=== PATIENT | male | born 1945 | race Caucasian/White ===

== ENCOUNTER 2016-12-30 00:29 | Day surgery (SDC) | payer MEDICARE, OTHER ==
[~2016-12-30] VITALS: Ht 169.6 cm; Wt 76.9 kg
[2016-12-30] VITALS (14 sets, daily range): BP systolic 116–163; BP diastolic 56–82; PULSE 35–70; RESP 12–17; O2SAT 94–100
[~2016-12-30 00:29] MED LIST: ASPI325T32 PO; CHOL200047 PO; GLUC-207 PO; LEVO25TA5 PO; MULT1CAP33 PO; OMEG-38 PO; VITA200C61 PO; [UNRECOGNIZED DRUG - CODE] PO; [UNRECOGNIZED DRUG - OTHER]; [UNRECOGNIZED DRUG - OTHER]; [UNRECOGNIZED DRUG - OTHER] PO
--- NOTE | 2016-12-30 09:00 | NUR ---
ADMISSION NOTE MALE PT ADMITTED FOR HEART CATH. DISCUSSED PLAN OF CARE WITH PT AND FAMILY .SEE ADMIT AND FLOW SHEET
[2016-12-30 09:30] LABS: BASOPHILS % (AUTO) 0.4 % (0-3); EOSINOPHILS % (AUTO) 3.4 % (0-5); MONOCYTES % (AUTO) 9.4 % (4-12); Mean Corpuscular Volume 90.3 fL (81-100); Platelet Count 206 bil/L (150-400)
[2016-12-30] MEDS ORDERED: NITR0.4T6 SL (10:37)
[2016-12-30] MEDS ORDERED: [UNRECOGNIZED DRUG - OTHER] (10:39)
[2016-12-30] MEDS ORDERED: lipitor (10:39)
[2016-12-30] MEDS ORDERED: Heparin 10,000 Unit/1,000 mL NS Premix IV ONE (11:14)
[2016-12-30] MEDS ORDERED: Heparin 1,000 Units/500 mL NS Premix IV ONE (11:14)
[2016-12-30] MEDS ORDERED: fentaNYL-PF 50 mCg/mL 2 mL Inj ONE (11:43)
[2016-12-30] MEDS ORDERED: Nitroglycerin 50,000 mcg/250 mL D5W Premix IV ONE (11:55)
[2016-12-30] MEDS ORDERED: Heparin 1,000 Unit/mL 10 mL Inj ONE (12:02)
--- NOTE | 2016-12-30 12:45 | NUR ---
POST PROCEDURE NOTE RETURNED FROM ASSOCIATE APPLICATION DEVELOPER. SEE FLOW SHEET
--- NOTE | 2016-12-30 13:33 | DI95 ---
[address] [address] INTERVENTIONAL CARDIAC CATHETERIZATION PATIENT: MEENA DORSEY : 1945 MR#: [id number] ADMIT: 12/30/2016 JOB ID: [id number] PROCEDURE: Selective right and left coronary angiography, left heart catheterization, percutaneous intervention on the left anterior descending. INDICATION: Abnormal stress test. PROCEDURAL DETAILS: The reader is referred to the procedure log for complete details. Briefly, it was done via right femoral approach using a [id number] system. Further details, which coders may require, are enumerated in the procedure log. ANGIOGRAPHIC FINDINGS: 1. Left main normal. 2. LAD in its mid portion has a tight 90% lesion just past the 1st septal branch. The first diagonal has an ostial 60% lesion. 3. Circumflex is nondominant. At an area involving 180 degree bend there is a tubular stenosis of about 60% to 70%. 4. Right coronary artery is dominant. In its mid portion, it has about a 30% lesion. The RV branch has 50 to 60% lesion. 5. Left heart catheterization revealed an LVEDP of 11. There was no gradient upon pullback. Left ventriculography revealed preserved LV function. Visually estimated ejection fraction is 60%. INTERVENTIONAL REPORT: We then took a run-through wire and balloon dilated this lesion with a 2.0 balloon. Following that, a 3.0 x 18 mm Xience drug-coated stent was delivered at 14 atmospheres with excellent angiographic results. The patient is advised to stay on dual antiplatelet therapy for at least six months post procedure.
--- NOTE | 2016-12-30 15:30 | NUR ---
TRANSFER NOTE TO [facility], REPORT GIVEN
--- NOTE | 2016-12-30 18:24 | NUR ---
Admit Pt admitted to [facility] from [facility] following heart cath and stent to LAD. Vitals stable, pt assessed and oriented to floor. Cardiac:Pt denies CP, Tele SR 50-60s Resp: Pt denies SOB, SPO2 high 90s on RA. GI/: Pt denies n/v/d Neuro: A&Ox3, BLANKENSHIP, strong steady gait in the room.
[2016-12-31 03:39] VITALS: BP 126/71; PULSE 51; RESP 15; O2SAT 98
--- NOTE | 2016-12-31 04:28 | NUR ---
Shift summary: noc Vs as noted. Denies chest pain or discomforts. Right groin secure without bleeding or hematoma. Sats on room air mid 90s. Iv Saline locked.
[2016-12-31 08:15] VITALS: BP 128/81; PULSE 54; RESP 16; O2SAT 97
--- NOTE | 2016-12-31 09:44 | PCM.DIMED ---
Discharge Instructions Date of Service Dec 31, 2016 Dates of Hospitalization 12/30/2016 Discharge Diagnosis Discharge Diagnosis CAD, s/p TOMASA placement to LAD. Medication Instructions Additional med instructions Please take all medications as prescribed. It is very important that you take Plavix (Clopidogrel) every day for at least one year because you had drug- eluting stent placement. Diet Discharge Diet: Low fat, Low Sodium Activity Discharge Activity: Other (Please see below) Call your provider Call your provider for: Shortness of breath, Bleeding, Chest pain Patient Instructions Patient Instructions Please do not drive a car for a couple of days, you can start taking showers starting from today, do not soak in bath tub for one week; no heavy lifting, no more than 7-10 lb for one week; otherwise be physically active as tolerated. Follow-up plan BMP in one week Provider: Bonifacio Valladares MD Follow-up in: 4 weeks Sedrick Franco PA-C Dec 31, 2016 09:44
--- NOTE | 2016-12-31 09:45 | PCM.DC.MED ---
Discharge Summary Date of Service Dec 31, 2016 Dates of Hospitalization Date of Hospital Admission 12/30/2016 Date of Discharge: Dec 31, 2016 Providers: Admitting Physician: Primary Care Physician: Gilberto Tijerina MD Attending Physician: Bonifacio Valladares MD Diagnosis at Time of Discharge Diagnosis at Time of Discharge CAD, s/p TOMASA placement to LAD. Brief History This is a very pleasant 71-year-old gentleman with h/o coronary artery disease who recently had abnormal stress test. He was scheduled for elective cardiac catheterization which was done on 12/30/2016. He had TOMASA placement to LAD. Hospital Course The patient tolerated procedure well. He ambulates freely. Denies having any chest discomfort or KNOWLES, does not have symptoms of nocturnal pulmonary congestion. Right groin area (access site) not painful, nontender with palpation, no hematoma and no bleeding, no bruits with auscultation. On telemetry sinus rhythm, currently with HR in 70s, and during the night and in the morning in 40s-50s bpm; no dysrhythmia. Medications on discharge are below. Exam Vital Signs (Last) Date Time Temp Pulse Resp B/P Pulse Ox O2 Delivery O2 Flow Rate FiO2 12/31/16 08:15 36.7 54 16 128/81 97 Room Air Exam General: no acute distress EENT: MMM, sclerae unicteric Neck: supple, no thyromegaly Pulmo: normal breathing sounds bilaterally, no crackles, no wheezing Cardio: RRR, no murmur appreciated, JVP is not elevated Abdomen: nontender with palpation Extremities: no LE edema Neuro: A&Ox3, no gross abnormalities Test 12/30/16 09:15 12/31/16 08:35 White Blood Count 5.6th/mm3 (3.8-10.1) Red Blood Count 4.83mil/mm3 (4.40-5.80) Hemoglobin 14.5g/dL (13.8-17.2) Hematocrit 43.6% (41.0-50.0) Mean Corpuscular Volume 90.3fL (81-100) Mean Corpuscular Hemoglobin 30.0pg (27.0-35.0) Mean Corpuscular Hemoglobin Concent 33.3% (32.0-37.0) Red Cell Distribution Width 13.8% (12.3-15.4) Platelet Count 206bil/L (150-400) Neutrophils (%) (Auto) 54.0% (40-74) Lymphocytes (%) (Auto) 32.8% (14-46) Monocytes (%) (Auto) 9.4% (4-12) Eosinophils (%) (Auto) 3.4% (0-5) Basophils (%) (Auto) 0.4% (0-3) Triglycerides Level 97mg/dL (0-149) Cholesterol Level 147mg/dL (100-199) LDL Cholesterol, Calculated 85.600mg/dL (0-99) VLDL Cholesterol 19.400mg/dL HDL Cholesterol 42mg/dL (>39) Cholesterol/HDL Ratio 3.50 (0.0-4.4) Sodium Level 138mEq/L (134-144) Potassium Level 4.5mEq/L (3.5-5.2) Chloride Level 102mEq/L (97-108) Carbon Dioxide Level 23mmol/L (18-29) Blood Urea Nitrogen 17mg/dL (8-27) Creatinine 1.06mg/dL (0.76-1.27) Estimat Glomerular Filtration Rate 73mL/min (>59) Glucose Level 97mg/dL (60-99) Calcium Level 9.3mg/dL (8.5-10.1) Discharge Medications Discharge Medications Aspirin (Aspirin) 81 Mg Tablet 81 MG PO DAILY Prescribed by: ROHIT DOWNING Atorvastatin (Lipitor) 40 Mg Tablet 40 MG PO DAILY Prescribed by: ROHIT DOWNING Cholecalciferol (Vitamin D3) (Vitamin D3) 2,000 Unit Capsule 2,000 UNIT PO DAILY (Reported) Clopidogrel (Clopidogrel) 75 Mg Tablet 75 MG PO DAILY Prescribed by: ROHIT DOWNING Levothyroxine (Levothyroxine) 25 Mcg Tablet 25 MCG PO DAILY (Reported) Metoprolol Succinate ER (Metoprolol Succinate ER) 50 Mg Tab.er.24h 50 MG PO DAILY Prescribed by: ROHIT DOWNING Multivitamin (Multivitamins) 1 Each Capsule 1 EACH PO DAILY (Reported) Nitroglycerin SL (Nitroglycerin SL) 0.4 Mg Tab.subl 0.4 MG SL Q5MIN (Reported) [place]-3/Dha/Epa/Fish Oil (Fish Oil 1,000 mg Softgel) 1 Each Capsule 1 EACH PO DAILY (Reported) Additional med instructions Please take all medications as prescribed. It is very important that you take Plavix (Clopidogrel) every day for at least one year because you had drug- eluting stent placement. Followup Plan Discharge Diet: Low fat, Low Sodium Discharge Activity: Other (Please see below) Patient Instructions Please do not drive a car for a couple of days, you can start taking showers starting from today, do not soak in bath for one week; no heavy lifting, no more than 7-10 lb for one week; otherwise be physically active as tolerated. Provider: Bonifacio Valladares MD Follow-up in: 4 weeks Sedrick Franco PA-C Dec 31, 2016 09:45 starting from today, do not soak in bath for one week; no heavy lifting, no more than 7-10 lb for one week; otherwise be physically active as tolerated. Provider: Bonifacio Valladares MD Follow-up in: 4 weeks Sedrick Franco PA-C Dec 31, 2016 09:45
[2016-12-31] MEDS ORDERED: METO-272 PO (10:16)
[2016-12-31] MEDS ORDERED: CLOP75TA28 PO (10:16)
[2016-12-31] MEDS ORDERED: ASPI-973 PO (10:16)
[2016-12-31] MEDS ORDERED: LIP40 PO (10:16)
[2016-12-31 10:30] VITALS: PULSE 55
--- NOTE | 2016-12-31 13:09 | NUR ---
Discharge Pt discharged home today. Pt off floor via wheelchair with all of his belongings in the company of the [employer] DRIVER and to private vehicle. Pt was provided with prescriptions, follow up information, instructions to get BMP in a week, and ed materials on meds and post stent precautions. All questioons answered and pt voices understanding.
== END 2016-12-31 12:30 | disposition home or self-care (01) ==
LOC: SOUO 00:29 → PCC 15:41 → SOUO 12-31 12:30
PROVIDERS: ATTEND Internal Medicine Cardiovascular Disease
DX: I25.10 Atherosclerotic heart disease of native coronary artery without angina pectoris (principal)
CPT/HCPCS: 36415; 80048; 80061; 85025; 93005; 93458; 99152; 99153; C1725; C1760; C1769; C1874; C1887; C9600; J1200; J1644; J2060; J2250; J3010; J7030; Q9967